=== PATIENT | male | born 1960 | race Asian ===

== ENCOUNTER → 2023-07-24 07:32 | Outpatient (REF) | payer BC, SELFPAY | LOC: RAD 07:32 | PROVIDERS: ATTENDING PHYSICIAN Urology; FAMILY PHYSICIAN Family Medicine | DX: R31.0 Gross hematuria (principal) | CPT/HCPCS: 74178; Q9967 ==

== ENCOUNTER 2023-07-27 06:14 | Day surgery (SDC) | payer BC, SELFPAY ==
[2023-07-20 08:07] VITALS: BMI 21.2
[2023-07-20 09:54] LABS: INR 1.07; PT 13.9 Sec (11.4-14.6)
[2023-07-20 09:55] LABS: APTT 26.6 Sec (23.4-35.0)
[2023-07-27] VITALS (13 sets, daily range): BP systolic 119–156; BP diastolic 75–92; BMI 21.2
[2023-07-27] MEDS: CYSVIEW KIT 100 MG INTRAVES (08:06)
[2023-07-27] MEDS: NORMOSOL-R 1000 IV (08:14)
[2023-07-27] MEDS: SYRINGE NON-PUMP 50 ML IRRIG ×2 (09:56→09:57)
[2023-07-27] MEDS: SYRINGE NON-PUMP 50 MG IRRIG ×2 (09:56→09:57)
[2023-07-27] MEDS: Pyridium 200 MG PO (11:15)
== END 2023-07-27 12:55 | disposition home or self-care (01) ==
LOC: SDS 06:14
PROVIDERS: ATTENDING PHYSICIAN Urology; FAMILY PHYSICIAN Family Medicine
DX: D09.0 Carcinoma in situ of bladder (principal); D49.4 Neoplasm of unspecified behavior of bladder
CPT/HCPCS: 52235; C9738; 88307; 36415; 85610; 85730; 93005; A9589

== ENCOUNTER 2025-02-08 08:29 | Emergency (ER) | payer OTHER, SELFPAY ==
[2025-02-08] VITALS (9 sets, daily range): BP systolic 112–137; BP diastolic 76–90; PULSE 81; O2SAT 100
--- NOTE | 2025-02-08 09:00 | ED.GENMED ---
History of Present Illness
General
Chief Complaint: Dizziness
Source: patient and family (Son)
Exam Limitations: none
Time Seen by Provider: 02/08/25 08:59
History of Present Illness
History of Present Illness:
Very pleasant 65-year-old male presents with disequilibrium x 3 days. Positional in nature. Worse when he turns his head to the left. Son has noted he has had a slight tremor for about a year that seems to be progressing. This seems independent
of this issue. Has some ringing in his left ear. No other neurologic symptoms.
Past History
Past History
ED Past Medical History: Cancer (Bladder)
ED Past Surgical History: Urological
Review of Systems
Review of Systems
All Other Systems: Not applicable
Respiratory: Reports no symptoms
Cardiac: Reports no symptoms
Phy Exam
Physical Exam
Physical Exam:
GENERAL: Alert and oriented in no apparent distress. Gait normal
EYE: Orbits normal.
NECK: Supple, no significant adenopathy.
ENT: Pharynx without erythema
CARDIAC: Regular rate and rhythm without any obvious murmurs.
LUNGS: Clear breath sounds,normal
ABDOMEN: Soft, without focal tenderness or distention
NEUROLOGICAL: Alert and oriented , cranial nerves II through XII intact. No unusual nystagmus. No rotatory vertical or bidirectional nystagmus. [id number] normal. Negative Romberg. Upper and lower extremity strength normal. Speech normal.
SKIN: Warm and dry, no rash or lesion, no discoloration, skin intact.
MUSCULOSKELETAL: No edema,no deformity.Good color
PSYCH: Normal and appropriate interaction.
Course
Orders/Labs/Results
Orders:
Orders
02/08/25 08:36
Electrocardiogram (*1) Urgent
Reason for Study: Vertigo / Dizzy
EKG- Treatment ONCE
02/08/25 09:09
Cardiac Monitoring- Treatment ONCE
IV Insert/Care/Rem.- Treatment PRN
Physical Therapy Consult [Pt Eval And Treat] Urgent
Treatment: dizziness
Activity Level: Ambulate
02/08/25 09:21
MR Brain Without Contrast Urgent
Comment:
Reason For Exam: Disequilibrium
Recent pill cam endoscopy?: No
02/08/25 09:23
Basic Metabolic Panel Urgent
Complete Blood Count/With Diff Urgent
02/08/25 14:35
Aspirin Chewable [Low Strength Aspirin] 81 mg PO NOW STA
02/08/25 14:53
Meclizine [Antivert] 25 mg PO NOW STA
Abnormal Lab Results
02/08/25
09:23
Lymphocytes % 18.0 L %
(20.5-51.1)
Glucose 118 H mg/dl
(70-99)
02/08/25 09:23
02/08/25 09:23
Vital Signs
Initial and Last Documented VS:
Initial Vital Signs
Temp Pulse Resp Pulse Ox
98.5 F 76 16 98
02/08/25 08:33 02/08/25 08:33 02/08/25 08:33 02/08/25 08:33
Last Documented Vital Signs
Temp Pulse Resp BP Pulse Ox
98.5 F 89 16 119/79 99
02/08/25 08:33 02/08/25 14:48 02/08/25 14:48 02/08/25 14:48 02/08/25 14:48
*Radiology
Radiology exam reviewed: other (MRI diffuse cerebral and cerebellar volume loss. Leukoaraiosis)
*Pulse Oximetry
SaO2: 98
Oxygen Mode of Delivery: Room air
Patient hypoxic: no
*EKG
Interpreted by ED Provider?: Yes
Interpretation: normal
Comparison EKG: no changes
Heart Rate: 69
Rate: normal
Rhythm: sinus
[place]: normal axis
Interval: normal interval
QRS Pattern: normal QRS
Ischemia: no ischemia
*Critical Care Note
Total Time (30-74mins, 75-104mins- exclusive of procedures): Not Applicable
Update Note
Update Note:
Patient and family updated. Copy of MRI report given to patient. Discussed with patient's brother who is an ER physician. Will start a baby aspirin a day and follow-up.
1530... When patient had gotten up to leave initially he did feel disequilibrium upon standing and was wobbly when he began to walk. We brought him back. Stable vital signs. Appeared well. Gave him a dose of meclizine and observed him. We now
rechecked him and he ambulated well without issues. I did offer admission for further observation and evaluation although given the negative MRI stable neurologic exam, reasonable for outpatient follow-up. Patient has no neck pain no other
neurologic symptoms. Patient and family are comfortable with outpatient management. I will give a prescription for meclizine
ED Attending Note
-
Portions of this chart may have been created with voice recognition software.� Occasional wrong word or��sound alike� substitutions may have occurred due to the inherent limitations of voice recognition software.
Discharge Plan
Departure
Patient Disposition: Home (Routine Discharge)
Date of Disposition: 02/08/25
Time of Disposition: 14:36
Patient with high blood pressure during this ER visit?: No
Discharge Problem:
Disequilibrium, Tremor
Instructions: Dizziness
Prescriptions:
New
meclizine 25 mg tablet
25 mg PO TID PRN (Reason: dizziness) Qty: 14 0RF
No Action
cholecalciferol (vitamin D3) [Vitamin D3] 25 mcg (1,000 unit) Capsule
25 mcg PO .EVERYOTHERDAY
Referrals:
Ashwin Rasmussen MD [Family Provider, Family Practice] - Follow up in 2-3 days
Jose Finn MD [Active, Neurology] - Next open appointment
Activity Restrictions/Additional Instructions:
Use Debrox in the left ear
Recommend a baby aspirin per day
Close follow-up. Return with worsening dizziness or any other acute neurologic symptoms
Interventions
Interventions:
*Risk Screen - Suicide Last Done: 02/08/25 08:33
*Neglect/Abuse Screening Last Done: 02/08/25 08:33
*Nursing Disposition Last Done: 02/08/25 15:40
ED- Neurological Assessment Last Done: 02/08/25 09:24
Discharge Date and Time
Discharge Date/Time: 02/08/25 15:40
Print Language: [email or web address]
[2025-02-08 09:40] LABS: Hematocrit 44.4 % (39.0-52.0); Hemoglobin 14.9 g/dL (13.0-18.0); Mean Corp Hgb Conc. 33.6 g/dL (33.0-37.0); Mean Corpuscular Volume 85.2 fL (80.0-94.0); Nucleated Red Blood Cells % 0 % (-); Platelet Count 222 10^3/uL (130-400); Red Cell Dist. Width 12.9 % (11.5-14.5)
[2025-02-08 10:03] LABS: Blood Urea Nitrogen 11 mg/dl (9-20); Calcium 10.1 mg/dl (8.4-10.2); Carbon Dioxide 27 mmol/L (22-30); Chloride 103 mmol/L (98-107); Glucose 118 mg/dl (70-99); Potassium 4.6 mmol/L (3.5-5.1); Sodium 136 mmol/L (135-145); eGFR > 60.00
[2025-02-08] MEDS: LOW STRENGTH ASPIRIN 81 MG PO (14:42)
[2025-02-08] MEDS: ANTIVERT 25 MG PO (14:56)
== END 2025-02-08 15:40 | disposition home or self-care (01) ==
LOC: EMR 08:29
PROVIDERS: EMERGENCY PHYSICIAN Emergency Medicine; FAMILY PHYSICIAN Family Medicine
DX: R42 Dizziness and giddiness (principal); R25.1 Tremor, unspecified; I67.81 Acute cerebrovascular insufficiency; Z79.82 Long term (current) use of aspirin; Z85.51 Personal history of malignant neoplasm of bladder
CPT/HCPCS: 99284; 70551; 80048; 85025; 93005